=== PATIENT | female | born 1950 | race Caucasian/White ===

== ENCOUNTER 2022-09-30 12:32 | Day surgery (SDC) | payer MEDICARE, BC, SELFPAY ==
[2022-09-30 12:47] VITALS: BMI 23.2
[2022-09-30 12:51] VITALS: BP 154/79; PULSE 64; RESP 10; TEMP 36.6; O2SAT 100
[2022-09-30] MEDS: LACTATED RINGERS 1,000 ML 42 ML IV (13:03)
--- NOTE | 2022-09-30 13:04 | P.HP_ITS ---
History of Present Illness History of Present Illness Date Patient Seen: 09/30/22 Time Patient Seen: 13:04 Chief complaint: Colonoscopy Narrative: Personal history of colon polyps. Here for surveillance. Last exam was 2016 [facility] Surgical History Hx of tonsillectomy Social History household members: spouse Smoking Status: Never smoker alcohol intake: current Meds Home Medications and Allergies Home Medications Medication Instructions Recorded Confirmed Type No Known Home Medications 09/30/22 09/30/22 History Allergies Allergy/AdvReac Type Severity Reaction Status Date / Time No Known Drug Allergies Allergy Verified 09/30/22 12:46 Review of Systems Review of Systems ROS: Yes All systems reviewed with the patient and are negative except as otherwise documented Exam Vital Signs (past 8 hours): - 09/30/22 12:51 Temperature 97.8 F Pulse Rate 64 Respiratory Rate 10 L Blood Pressure 154/79 H Pulse Oximetry 100 Oxygen Delivery Method Room Air Oxygen Delivery Method Room Air Const General: cooperative HENMT Head: normal to inspection Eyes General: appearance normal, both eyes and all related structures Neck Neck: normal visual inspection Chest Chest: normal inspection of the chest Resp Effort & Inspection: normal respiratory effort Cardio Rate: regular rate GI Inspection: normal to inspection Skin General: no rashes or lesions noted Neuro General: patient alert and patient awake Extrem General: normal to inspection and no pedal edema Psych Appearance: grossly normal Assessment & Plan Assessment & Plan narrative: 71-year-old female with a personal history of colon polyps. Colonoscopy is pursued today.
--- NOTE | 2022-09-30 13:08 | PM.PREOP ---
Pre-operative Note Interval Note History & Physical reviewed/Exam performed by Physician: Yes Changes to H&P: No ASA Class (for procedural sedation): I
[2022-09-30 14:22] VITALS: BP 100/55; PULSE 71; RESP 25; TEMP 36.1; O2SAT 100
--- NOTE | 2022-09-30 14:22 | PM.OP.COLON ---
Operative Date/Time/Diagnoses Date of procedure: 09/30/22 Time of procedure: 14:22 Pre-op diagnosis: Personal history of colon polyps Post-op diagnosis: same Procedure & Clinicians Study performed: Colonoscopy Same procedure as scheduled: Yes Indications: Personal history of colon polyps Surgeon: Travis Sherman Procedure Notes SCOAP/Timeout: Done Procedure in detail: After the risks and benefits were explained, written and verbal informed consent was obtained. The patient was brought into the procedure room and placed into the left lateral decubitus position. Please see anesthesia notes for sedation details. Digital rectal examination was accomplished. The scope was introduced into the patient and advanced under direct visualization to the cecum as identified by the appendiceal orifice and ileocecal valve. The scope was slowly withdrawn to carefully examine the mucosa for any defects or lesions. Comprehensive imaging was accomplished throughout the rectum including the dentate line. The colon was decompressed, the scope was then removed from the patient who tolerated the procedure well. Pediatric colonoscope Bowel prep adequate Scope withdrawal time: 11 minutes Sedation minutes: 23 Specimen(s): none sent Complications: none Impression: The patient had a fairly tortuous colon. Navigation was somewhat challenging. No significant polyps mass lesions or inflammatory features identified throughout. Endoscopic diagnosis 1. Tortuous colon 2. Otherwise visually unremarkable exam Post-procedure Plan for aftercare: Repeat colonoscopy for personal history of colon polyps in 7-10 years. Disposition: PACU
[2022-09-30 14:28] VITALS: BP 116/67; PULSE 66; RESP 16; O2SAT 100
[2022-09-30 14:33] VITALS: BP 121/64; PULSE 64; RESP 15; O2SAT 100
== END 2022-09-30 14:45 | disposition home or self-care (01) ==
PROVIDERS: Referring Provider Internal Medicine Gastroenterology; Visit Provider Internal Medicine Gastroenterology
PROC: 0DJD8ZZ Inspection of Lower Intestinal Tract, Via Natural or Artificial Opening Endoscopic (ICD-10-PCS; CPT 45378; principal; 2022-09-30 13:30)
DX: Z12.11 Encounter for screening for malignant neoplasm of colon (principal); Z86.010 Personal history of colon polyps
CPT/HCPCS: G0105; J2704